=== PATIENT | male | born 1960 | race Caucasian/White ===

== ENCOUNTER → 2020-08-10 11:23 | Outpatient (CLI) | payer OTHER, SELFPAY ==
[2020-08-10 19:28] LABS: Add Manual Diff / Slide Review NO; Basophils Absolute Auto 0 /uL (0-100); Basophils Percent Auto 0.8 % (0-2); Eosinophils Absolute Auto 200 /uL (0-450); Eosinophils Percent Auto 4.5 % (2-4); Hematocrit 44.4 % (41-53); Hemoglobin 15.2 g/dL (13.5-17.5); Lymphocytes Absolute Auto 1500 /uL (1100-4500); Lymphocytes Percent Auto 29.7 % (25-40); Mean Corpuscular HGB Conc 34.3 % (30-36); Mean Corpuscular Hemoglobin 31.8 PG (26-34); Mean Corpuscular Volume 92.5 fL (80-100); Monocytes Absolute Auto 400 /uL (0-900); Monocytes Percent Auto 8.1 % (3-14); Neutrophils Absolute Auto 2800 /uL (1500-7000); Neutrophils Percent Auto 56.9 % (50-75); Platelet Count 186 X10^3/uL (150-400); White Blood Cell Count 4.9 X10^3/uL (4.5-11.0)
[2020-08-10 19:33] LABS: Alanine Aminotransferase 40 IU/L (<50); Albumin 4.5 g/dL (3.5-5.0); Albumin Globulin Ratio 1.8 (1.0-2.8); Alkaline Phosphatase 64 U/L (38-126); Aspartate Aminotransferase 38 IU/L (17-59); BUN Creatinine Ratio 19.5 (6-22); Bilirubin Total 0.6 mg/dL (0.2-1.3); Blood Urea Nitrogen 16 mg/dL (9-20); Calcium 10.9 mg/dL (8.4-10.2); Carbon Dioxide 29 mmol/L (22-32); Chloride 105 mmol/L (98-107); Cholesterol 149 mg/dL (140-199); Estimated Glomerular Filt Rate > 60.0 mL/min (>60); Globulin 2.5 g/dL (1.7-4.1); Glucose 93 mg/dL (80-110); HDL Cholesterol 77 mg/dL (40-60); HEMOLYSIS < 15 (0-50); LDL Cholesterol Calculated 57 mg/dL (<100); Potassium 4.5 mmol/L (3.4-5.1); Sodium 140 mmol/L (137-145); Triglycerides 76 mg/dL (35-150)
[2020-08-10 20:05] LABS: Prostate Specific Antigen 0.106 ng/mL (0.10-4.00)
== END ==
PROVIDERS: PCP Family Medicine; Referring Provider Physician Assistant; Visit Provider Physician Assistant
DX: E78.5 Hyperlipidemia, unspecified (principal); N41.9 Inflammatory disease of prostate, unspecified
CPT/HCPCS: 80053; 80061; 84153; 85025

== ENCOUNTER → 2020-11-16 08:42 | Outpatient (CLI) | payer OTHER, SELFPAY ==
[2020-11-16 09:19] LABS: BUN Creatinine Ratio 17.1 (6-22); Blood Urea Nitrogen 13 mg/dL (9-20); Estimated Glomerular Filt Rate > 60.0 mL/min (>60)
--- NOTE | 2020-11-16 09:32 | DI.CT.S_ITS ---
PROCEDURE: CT ABDOMEN PELVIS W CON INDICATIONS: abdominal pain TECHNIQUE: After the administration of intravenous contrast, axial sections acquired from the lung bases to the pubic symphysis. Coronal and sagittal reformats were performed. For radiation dose reduction, the following was used: automated exposure control, adjustment of mA and/or kV according to patient size. COMPARISON: None. FINDINGS: Image quality: Excellent. Lung bases: Unremarkable. Heart: No significant findings. ABDOMEN: Liver: Unremarkable. Gallbladder: Unremarkable. Biliary ducts: Unremarkable. Pancreas: Unremarkable. Spleen: Unremarkable. Adrenal Glands: Unremarkable. Kidneys and Ureters: Unremarkable. Stomach and Bowel: Sigmoid diverticulosis without evidence of diverticulitis. Moderately large fecal load. Peritoneum: No abnormal intraperitoneal fluid. No free air. Ventral Wall: No hernias. Abdominal Nodes: No retroperitoneal or mesenteric adenopathy by size criteria. Vessels: Aorta and inferior vena cava are normal in size. PELVIS: Pelvic Organs: Unremarkable. Bladder: Diffuse bladder wall thickening.. Pelvic Nodes: No enlarged lymph nodes. Miscellaneous: No hernias are seen. Bones: Unremarkable. IMPRESSION: 1. Sigmoid diverticulosis without evidence of diverticulitis. 2. Diffuse bladder wall thickening, suggesting cystitis. Dictated by: Alexis Edwards M.D. on 11/16/2020 at 9:52 Approved by: Alexis Edwards M.D. on 11/16/2020 at 9:54
== END ==
PROVIDERS: PCP Physician Assistant; Referring Provider Surgery; Visit Provider Surgery
DX: K57.92 Diverticulitis of intestine, part unspecified, without perforation or abscess without bleeding (principal)
CPT/HCPCS: 36415; 74177; 82565; 84520; Q9967

== ENCOUNTER 2020-12-06 16:41 | Emergency (ER) | payer OTHER, SELFPAY ==
[2020-12-06] VITALS (7 sets, daily range): BP systolic 131–144; BP diastolic 85–89; PULSE 55–76; RESP 16; TEMP 36.9; O2SAT 91–100; BMI 22.9
--- NOTE | 2020-12-06 17:12 | ED_ITS ---
HPI - GI Bleed General Chief complaint: GI Bleed Stated complaint: Rectal bleeding GI-Bleed Time Seen by Provider: 12/06/20 17:00 Source: patient Mode of arrival: Ambulatory Limitations: no limitations History of Present Illness HPI Narrative: Patient is a 59-year-old male who was sent over from the General surgery Clinic for a CT scan. Patient states that several weeks ago he was seen in outside facility for left lower quadrant pain. We had a CT scan performed. Was told that he had diverticulitis. Was placed on antibiotics. Took those antibiotics as directed. His symptoms did improve but never completely went away. He was told to follow-up with general surgery. Since that time he has had another episode of abdominal discomfort. Again was seen in the emergency department. Had a CT scan performed. Was told that at this time it was not diverticulitis. He followed up with General surgery today. Has had worsening left lower quadrant discomfort. He was told by the general surgeon that he needed a CT scan to see whether not he had diverticulitis because of he did that he cannot get a colonoscopy until this was treated. He stated that he is having blood in his stool. No fevers. No nausea vomiting. No urinary symptoms. Not on anticoagulation. No prior abdominal surgeries. Related Data Home Medications Medication Instructions Recorded Confirmed aspirin 81 mg tablet,delayed 81 mg PO DAILY 08/07/20 12/06/20 release esomeprazole magnesium 20 mg 20 mg PO DAILY 08/07/20 12/06/20 capsule,delayed release (Nexium) rosuvastatin 40 mg tablet 40 mg PO DAILY 08/07/20 12/06/20 Previous Rx's Medication Instructions Recorded finasteride 5 mg tablet 5 mg PO DAILY #90 tab 08/07/20 escitalopram oxalate 20 mg tablet 20 mg PO QDAY #90 tab 10/09/20 Allergies Allergy/AdvReac Type Severity Reaction Status Date / Time doxycycline AdvReac Mild stomach Verified 12/06/20 16:57 issues Review of Systems Constitutional Constitutional: Reports system reviewed and no additional complaints, except as documented Eyes Eyes: Reports system reviewed and no additional complaints, except as documented Cardiovascular Cardiovascular: Reports system reviewed and no additional complaints, except as documented Respiratory Respiratory: Reports system reviewed and no additional complaints, except as documented Gastrointestinal Gastrointestinal: Reports as per HPI and Reports system reviewed and no additional complaints, except as documented Genitourinary Genitourinary: Reports system reviewed and no additional complaints, except as documented and Reports as per HPI Musculoskeletal Musculoskeletal: Reports system reviewed and no additional complaints, except as documented Integumentary/Breasts Skin/Breast: Reports system reviewed and no additional complaints, except as documented Neurologic Neurologic: Reports system reviewed and no additional complaints, except as doc umented Hematologic/Lymphatic On Anticoagulants: No Patient History Medical History GERD (gastroesophageal reflux disease) IBS (irritable bowel syndrome) Family History Father Hypertension Heart disease Cancer Social History marital status: household members: spouse Smoking Status: Never smoker Smoking Status: Never smoker alcohol intake frequency: 3 or more drinks per day Substance Use Type: marijuana Exam Initial Vital Signs Initial Vital Signs: Vital Signs Temperature 98.5 F 12/06/20 16:51 Pulse Rate 70 12/06/20 16:51 Respiratory Rate 16 12/06/20 16:51 Blood Pressure 137/88 12/06/20 16:51 Pulse Oximetry 99 12/06/20 16:51 Const General: cooperative, healthy appearing and comfortable HENMT Head: normal to inspection and normocephalic Chest Chest: normal inspection of the chest Resp Effort & Inspection: normal respiratory effort Cardio Rate: regular rate Rhythm: regular rhythm GI Inspection: non-distended Palpation: soft, No firm, No guarding and tender (Left-sided abdomen) Back/Spine/Pelvis Back: No CVA tenderness Skin Lesions: no lesions Rashes: no rashes Neuro General: patient alert, patient awake and moves all extremities Extrem General: capillary refill normal Psych Appearance: grossly normal and well kempt Course Orders Ordered: Discontinued Medications Sodium Chloride (Normal Saline 0.9%) 1,000 mls @ 1,000 mls/hr IV BOLUS ONE Stop: 12/06/20 18:11 Last Infusion: 12/06/20 19:14 Dose: 0 mls/hr Documented by: Admin: 12/06/20 18:38 Dose: 1,000 mls/hr Documented by: JAVED Vital Signs Vital signs: Vital Signs - 8 hr 12/06/20 16:51 Temperature 98.5 F Pulse Rate 70 Respiratory Rate 16 Blood Pressure 137/88 Pulse Oximetry 99 MDM - GI Bleed Medical Records Attestation: I reviewed the patient's medical records. Lab Data Attestation: I reviewed the patient's lab results. Result diagrams: 12/06/20 17:20 12/06/20 17:20 Labs: Lab Results 12/06/20 12/06/20 12/06/20 Range/Units 17:20 17:20 19:22 WBC 6.5 (4.5-11.0) X10^3/uL RBC 4.90 (4.5-5.9) X10^6/uL Hgb 15.1 (13.5-17.5) g/dL Hct 43.8 (41-53) % MCV 89.3 (80-100) fL MCH 30.8 (26-34) PG MCHC 34.5 (30-36) % RDW 13.2 (11.6-14.8) % Plt Count 195 (150-400) X10^3/uL Neut % (Auto) 70.5 (50-75) % Lymph % (Auto) 20.4 L (25-40) % [place] % (Auto) 7.2 (3-14) % Eos % (Auto) 1.4 L (2-4) % Baso % (Auto) 0.5 (0-2) % Neut # (Auto) 4600 (8618-9860) /uL Lymph # (Auto) 1300 (4867-8651) /uL [place] # (Auto) 500 (0-900) /uL Eos # (Auto) 100 (0-450) /uL Baso # (Auto) 0 (0-100) /uL Sodium 139 (137-145) mmol/L Potassium 4.0 (3.4-5.1) mmol/L Chloride 104 (98-107) mmol/L Carbon Dioxide 28 (22-32) mmol/L BUN 12 (9-20) mg/dL Creatinine 0.84 (0.66-1.25) mg/dL Estimated GFR > 60.0 (>60) mL/min BUN/Creatinine Ratio 14.3 (6-22) Glucose 96 (80-110) mg/dL Calcium 10.8 H (8.4-10.2) mg/dL Total Bilirubin 0.4 (0.2-1.3) mg/dL AST 30 (17-59) IU/L ALT 27 (<50) IU/L Alkaline Phosphatase 63 (38-126) U/L Total Protein 7.5 (6.3-8.2) g/dL Albumin 4.7 (3.5-5.0) g/dL Globulin 2.8 (1.7-4.1) g/dL Albumin/Globulin Ratio 1.7 (1.0-2.8) Urine RBC 0-1/hpf (0-5/HPF) Urine WBC 0-1/hpf (0-5/HPF) Urine Bacteria Few (2-10) H (None) Ur Culture Indicated? Cult not indicated Point of Care Testing Stool Occult Blood Negative Urine Dip Bedside Urine Glucose Negative Bedside Urine Bilirubin - Negative Bedside Urine Ketone - Negative Urine Specific [place] 1.015 Bedside Urine Occult Blood +/- Bedside Urine pH 7.5 Bedside Urine Protein - Negative Bedside Urine Urobilinogen - Negative Bedside Urine Nitrite - Negative Bedside Urine Leukocytes - Negative Esterase Imaging Data CT scan - abdomen/pelvis: Radiologist's Impression: [address] [id number] Scan ReportSigned Patient: Roscoe Boyd EMR#: [id number]: 1960cct:[id number]/Sex: 59 / MDate of Service: 12/06/20Loc: EDAccession Number: [id number] Procedure: CT abdomen pelvis w con Ordering Provider: Ector Jensen D.O. PROCEDURE: CT ABDOMEN PELVIS W CON INDICATIONS: Left-sided abdominal pain TECHNIQUE: After the administration of intravenous contrast, axial sections acquired from the lung bases to the pubic symphysis. Coronal and sagittal reformats were performed. For radiation dose reduction, the following was used: automated exposure control, adjustment of mA and/or kV according to patient size. COMPARISON: [facility], CT, CT ABDOMEN PELVIS W CON, 11/16/2020, 9:35. FINDINGS: Image quality: Excellent. Lung bases: Unremarkable. Heart: No significant findings. ABDOMEN: Liver: Unremarkable. Gallbladder: Unremarkable. Biliary ducts: Unremarkable. Pancreas: Unremarkable. Spleen: Unremarkable. Adrenal Glands: Unremarkable. Kidneys and Ureters: Unremarkable. Stomach and Bowel: Circumferential wall thickening involving the left colon and sigmoid colon compatible with nonspecific colitis. Scattered diverticuli noted in the left colon and sigmoid colon. No evidence of diverticulitis. The appendix is normal. Peritoneum: No abnormal intraperitoneal fluid. No free air. Ventral Wall: No hernias. Abdominal Nodes: No retroperitoneal or mesenteric adenopathy by size criteria. Vessels: Aorta and inferior vena cava are normal in size. PELVIS: Pelvic Organs: Unremarkable. Bladder: 1.5 centimeter posterior lateral left bladder diverticulum. Urinary bladder wall normal in thickness. Pelvic Nodes: No enlarged lymph nodes. Miscellaneous: No hernias are seen. Bones: Spine degenerative disc disease and facet arthropathy. IMPRESSION: 1. Circumferential wall thickening involving the distal left and sigmoid colon compatible with nonspecific colitis. Differential diagnosis includes inflammatory and infectious etiologies and less likely neoplastic or ischemic etiologies. 2. Colonic diverticulosis without evidence of diverticulitis. 3. Appendix is normal. 4. No free fluid or free air. 5. No dilated loops of bowel. Dictated by: Etta Moeller MD, PhD on 12/06/2020 at 18:21 Approved by: Etta Moeller MD, PhD on 12/06/2020 at 18:26 [facility] Narrative Medical decision making narrative: CT scan today does show colitis but not diverticulitis. He is having blood in his stool this is most likely from the colitis. Will hold on any antibiotics for now for the concern of potentially worsening/causing Clostridium difficile no indication for blood transfusion. No indication for admission to the hospital. Lab patient [place] [facility] [place] [facility] [place] follow-[place]. He was given return precautions. He expressed understanding and agreement. Discharge Plan Departure Patient Disposition: Home Clinical Impression: Colitis Instructions: DI for Colitis Activity Restrictions/Additional Instructions: I do recommend that you contact Dr. Aldrich is office to schedule follow-up appointment. You could potentially have loose stools and more blood in your stool for the next couple days. That should improve on its own. Return to the emergency department for any new or worsening symptoms. Prescriptions: No Action escitalopram oxalate 20 mg tablet 20 mg PO QDAY Qty: 90 RF: 3 rosuvastatin 40 mg tablet 40 mg PO DAILY RF: 0 aspirin 81 mg tablet,delayed release (DR/EC) 81 mg PO DAILY RF: 0 esomeprazole magnesium [Nexium] 20 mg capsule,delayed release(DR/EC) 20 mg PO DAILY RF: 0 finasteride 5 mg tablet 5 mg PO DAILY Qty: 90 RF: 4 Referrals: Shantelle Zimmer PA-C [Primary Care Provider] -
[2020-12-06 17:34] LABS: Add Manual Diff / Slide Review NO; Basophils Absolute Auto 0 /uL (0-100); Basophils Percent Auto 0.5 % (0-2); Eosinophils Absolute Auto 100 /uL (0-450); Eosinophils Percent Auto 1.4 % (2-4); Hematocrit 43.8 % (41-53); Hemoglobin 15.1 g/dL (13.5-17.5); Lymphocytes Absolute Auto 1300 /uL (1100-4500); Lymphocytes Percent Auto 20.4 % (25-40); Mean Corpuscular HGB Conc 34.5 % (30-36); Mean Corpuscular Hemoglobin 30.8 PG (26-34); Mean Corpuscular Volume 89.3 fL (80-100); Monocytes Absolute Auto 500 /uL (0-900); Monocytes Percent Auto 7.2 % (3-14); Neutrophils Absolute Auto 4600 /uL (1500-7000); Neutrophils Percent Auto 70.5 % (50-75); Platelet Count 195 X10^3/uL (150-400); Red Cell Distribution Width 13.2 % (11.6-14.8); White Blood Cell Count 6.5 X10^3/uL (4.5-11.0)
[2020-12-06 17:45] LABS: Alanine Aminotransferase 27 IU/L (<50); Albumin 4.7 g/dL (3.5-5.0); Albumin Globulin Ratio 1.7 (1.0-2.8); Alkaline Phosphatase 63 U/L (38-126); Aspartate Aminotransferase 30 IU/L (17-59); BUN Creatinine Ratio 14.3 (6-22); Bilirubin Total 0.4 mg/dL (0.2-1.3); Blood Urea Nitrogen 12 mg/dL (9-20); Calcium 10.8 mg/dL (8.4-10.2); Carbon Dioxide 28 mmol/L (22-32); Chloride 104 mmol/L (98-107); Estimated Glomerular Filt Rate > 60.0 mL/min (>60); Globulin 2.8 g/dL (1.7-4.1); Glucose 96 mg/dL (80-110); HEMOLYSIS < 15 (0-50); Sodium 139 mmol/L (137-145); Total Protein 7.5 g/dL (6.3-8.2)
[2020-12-06] MEDS: SODIUM CHLORIDE 0.9% 1,000 ML 1000 ML IV (18:38)
[2020-12-06 20:34] LABS: Bacteria Urine Few (2-10); Culture Indicated Urine Cult Not Indicated; RBC Urine 0-1/HPF (0-5/HPF); WBC Urine 0-1/HPF (0-5/HPF)
== END 2020-12-06 19:15 | disposition home or self-care (01) ==
PROVIDERS: Emergency Provider Emergency Medicine; PCP Physician Assistant
DX: K52.9 Noninfective gastroenteritis and colitis, unspecified (principal)
CPT/HCPCS: 36415; 74177; 80053; 81003; 81015; 82272; 85025; 96360; 99284

== ENCOUNTER → 2020-12-25 08:29 | Outpatient (CLI) | payer OTHER, SELFPAY ==
[2020-12-25 20:12] LABS: COVID19 - ORCAS (NP or Nasal) Negative (Negative)
== END ==
PROVIDERS: PCP Physician Assistant; Visit Provider Family Medicine
DX: Z20.822 Contact with and (suspected) exposure to COVID-19 (principal)
CPT/HCPCS: U0003

== ENCOUNTER 2020-12-28 11:16 | Day surgery (SDC) | payer OTHER, SELFPAY ==
[2020-12-28 11:40] VITALS: BP 141/94; PULSE 115; RESP 18; TEMP 36.6; O2SAT 98; BMI 22.8
--- NOTE | 2020-12-28 13:05 | PM.HP.1 ---
History of Present Illness History of Present Illness Date Patient Seen: 12/28/20 Time Patient Seen: 13:05 Chief complaint: DX COLONOSCOPY Narrative: 60M hx of diverticulitis here for a colonsocopy following an remote epsiode of uncomplicated diverticulitis. Please refer to the H&P from October 2020 for further detail. Patient History Medical History GERD (gastroesophageal reflux disease) IBS (irritable bowel syndrome) Family & Social History Family History Father Hypertension Heart disease Cancer Social History: household members spouse Tobacco & Substance use: Smoking Status Never smoker alcohol intake frequency 3 or more drinks per day Substance Use Type marijuana Meds Home Medications and Allergies Home Medications Medication Instructions Recorded Confirmed Type aspirin 81 mg tablet,delayed 81 mg PO DAILY 08/07/20 12/28/20 History release esomeprazole magnesium 20 mg 20 mg PO DAILY 08/07/20 12/28/20 History capsule,delayed release (Nexium) finasteride 5 mg tablet 5 mg PO DAILY #90 tab 08/07/20 12/28/20 Rx rosuvastatin 40 mg tablet 40 mg PO DAILY 08/07/20 12/28/20 History escitalopram oxalate 20 mg tablet 20 mg PO QDAY #90 tab 10/09/20 12/28/20 Rx Allergies Allergy/AdvReac Type Severity Reaction Status Date / Time doxycycline AdvReac Mild stomach Verified 12/28/20 11:36 issues Exam Vital Signs (past 8 hours): - 12/28/20 11:40 Temperature 97.9 F Pulse Rate 115 H Respiratory Rate 18 Blood Pressure 141/94 H Pulse Oximetry 98 Oxygen Delivery Method Room Air Narrative Exam Narrative: Constitutional-he is oriented to person, place and time. No apparent distress Cardiovascular- regular rate, no peripheral edema Pulmonary-unlabored respiratory effort, no audible wheezing Abdominal-soft, non-tender, non-distended Musculoskeletal-no cyanosis or clubbing Neurological-nonfocal, normal strength throughout, normal gait. Skin-warm and dry Assessment & Plan Assessment and plan (1) Diverticulitis: Status: Acute Assessment & Plan narrative: 60M hx of uncomplicated diverticulitis here for follow up diagnostic colonoscopy. Technical details were discussed. Risks, benefits, alternatives explained. Risks including but not limited to myocardial infarction, aspiration, bleeding, pain, missed lesion, incomplete examination, need for further radiographic studies, colonic perforation, and need for major abdominal surgery were discussed. All questions were answered to their satisfaction, and they are in agreement with this plan. Time Spent With Patient Critical Care time: I spent a total of [] minutes of critical care time on this patient's care today; this time is exclusive of procedural time.
[2020-12-28] MEDS: MIDAZOLAM 5 MG/5 ML VIAL IV (13:26)
[2020-12-28] MEDS: fentaNYL 250 MCG/5 ML INJ IV (13:26)
--- NOTE | 2020-12-28 13:44 | P.OP.COLON_ITS ---
Operative Date/Time/Diagnoses Date of procedure: 12/28/20 Time of procedure: 13:44 Pre-op diagnosis: diverticulosis Post-op diagnosis: same Procedure & Clinicians Study performed: colonoscopy Same procedure as scheduled: Yes Indications: episode of uncomplicated diverticulitis Surgeon: Gabriel Aldrich Procedure Notes Procedure in detail: Medications: Conscious sedation using 8 mg IV midazolam and 200 mcg IV of fentanyl The history and physical was performed/updated and the patient is ASA class is 2. The procedure was discussed in detail with the patient. Potential risks complications including infection, bleeding, missed diagnosis, perforation, need for surgery, and were explained. Their questions were answered and informed consent was obtained. Patient was brought to the procedure room and placed standard monitoring equipm ent. The patient's vital signs were monitored continuously throughout the entire procedure. Prior to starting time-out was performed. The patient was placed in the left lateral recumbent position. Procedural sedation was administered. Examination began with a thorough inspection of the perianal area there was no evidence of fissures, fistulae, external hemorrhoids or cutaneous malignancy. The colonoscopy scope was then placed into the anal canal and was advanced to the cecum, which was identified by the ileocecal valve, the appendiceal orifice and the confluence of the taenia. The scope was then slowly withdrawn examining colon thoroughly in all directions, irrigating it of any residual stool. FINDINGS 1. Extensive diverticulosis 2. No masses or polyps 3. Grade 1 internal hemorrhoids The patient tolerated the procedure well. They will be discharged once criteria are met. The prep was of good/excellent quality. The withdrawl time was 8minutes. The sedation time was 25 minutes. Specimen(s): none sent Complications: none Impression: Diverticulosis Post-procedure Recommendations: Colonoscopy in 10 years and High fiber diet Disposition: same day surgery
[2020-12-28 13:45] VITALS: BP 130/86; PULSE 77; RESP 12; TEMP 36.2; O2SAT 95
[2020-12-28 13:51] VITALS: BP 109/76; PULSE 75; RESP 12; O2SAT 94
[2020-12-28 13:55] VITALS: BP 118/83; PULSE 75; RESP 15; O2SAT 95
[2020-12-28 14:01] VITALS: BP 120/82; PULSE 74; RESP 16; O2SAT 98
[2020-12-28 14:06] VITALS: BP 113/83; PULSE 67; RESP 16; O2SAT 99
== END 2020-12-28 14:27 | disposition home or self-care (01) ==
PROVIDERS: PCP Physician Assistant; Referring Provider Surgery; Visit Provider Surgery
PROC: 0DJD8ZZ Inspection of Lower Intestinal Tract, Via Natural or Artificial Opening Endoscopic (ICD-10-PCS; CPT 45378; principal; 2020-12-28 13:00)
DX: K57.30 Diverticulosis of large intestine without perforation or abscess without bleeding (principal); K21.9 Gastro-esophageal reflux disease without esophagitis; K58.9 Irritable bowel syndrome, unspecified; K64.0 First degree hemorrhoids
CPT/HCPCS: 45378; 99152; J2250; J3010